=== PATIENT | male | born 1940 | race Caucasian/White ===

== ENCOUNTER 2019-03-04 19:29 | Emergency (ER) | payer MEDICARE ==
[~2019-03-04] VITALS: Ht 177.8 cm; Wt 81.6 kg
--- NOTE | 2019-03-04 19:29 | NUR ---
Placed in room 06 . Placed on monitor tech, blood pressure machine and pulse oximeter. To gown for exam. Side rails up.
--- NOTE | 2019-03-04 19:32 | NUR ---
ER Dr. Renner at bedside examining patient.
--- NOTE | 2019-03-04 19:32 | NUR ---
Pt AAOx4 presents to ED via wheelchair from home c/o slurred speech, 2/10 non-radiating chest pain since 1200 today. Pt reports he also had a mechanical trip and fall at ~ 1300 today, denies KO/n/v/d. Skin dry and warm, breathing even and unlabored. Pt denies taking medication for symptoms. No other injuries/complaints per pt/noted. Son at bedside. Will continue to monitor.
[2019-03-04 19:34] VITALS: BP_SYST 177
--- NOTE | 2019-03-04 19:40 | NUR ---
Pt taken to radiology via gurney in stable condition
[2019-03-04 19:55] LABS: BASOPHILS # (AUTO) 0.1 K/uL (0.0-0.2); BASOPHILS % (AUTO) 1.3 % (0.0-2.0); EOSINOPHILS # (AUTO) 0.7 K/uL (0.0-0.4); EOSINOPHILS % (AUTO) 8.6 % (0.0-4.0); HEMOGLOBIN 14.8 g/dL (14.0-18.0); LYMPHOCYTES # (AUTO) 2.8 K/uL (1.0-5.5); LYMPHOCYTES % (AUTO) 32.6 % (20.5-51.5); MEAN CORPUSCULAR HEMOGLOBIN 29 pg (27-31); MEAN CORPUSCULAR HGB CONC 34 % (32-36); MEAN CORPUSCULAR VOLUME 88 fL (79.0-98.0); MONOCYTES # (AUTO) 0.7 K/uL (0.0-1.0); MONOCYTES % (AUTO) 8.5 % (1.7-9.3); NEUTROPHILS # (AUTO) 4.2 K/uL (1.8-7.7); PLATELET COUNT (AUTO) 237 K/uL (130-430); RED BLOOD CELL COUNT(AUTO) 5.03 MIL/uL (4.2-6.2); RED CELL DISTRIBUTION WIDTH 15.7 % (9.0-15.0); WHITE BLOOD COUNT (AUTO) 8.6 K/uL (4.8-10.8)
--- NOTE | 2019-03-04 19:58 | NUR ---
Pt returned from radiology in stable condition
[2019-03-04 20:06] LABS: ANION GAP 6 (5-15); CALCIUM 9.7 mg/dL (8.4-11.0); CHLORIDE 99 mmol/L (98-107); CREATININE 1.04 mg/dL (0.55-1.30); GLUCOSE 103 mg/dL (70-99); POTASSIUM 4.1 mmol/L (3.5-5.1); SODIUM SERUM 134 mmol/L (136-145); UREA NITROGEN, BLOOD 20 mg/dL (8-21)
[2019-03-04 20:14] LABS: ALANINE AMINOTRANSFERASE 27 U/L (12-78); ALBUMIN 3.5 g/dL (3.4-4.8); ASPARTATE AMINOTRANSFERASE 22 U/L (10-37); TOTAL BILIRUBIN 0.7 mg/dL (0.0-1.0)
--- NOTE | 2019-03-04 20:38 | NUR ---
Pt able to swallow water. Dr. Renner notified.
[2019-03-04] MEDS ORDERED: HALOPERIDOL LACTATE 5 MG/ML VIAL IM ONE (20:45)
[2019-03-04 21:04] LABS: BILIRUBIN,URINE NEGATIVE (NEGATIVE); BLOOD, URINE NEGATIVE (NEGATIVE); CLARITY/URINE CLEAR (CLEAR); COLOR,URINE YELLOW (YELLOW); GLUCOSE,URINE NEGATIVE (NEGATIVE); KETONES,URINE NEGATIVE (NEGATIVE); LEUKOCYTE ESTERASE ,URINE NEGATIVE (NEGATIVE); NITRITE, URINE NEGATIVE (NEGATIVE); PROTEIN URINE 2+ (NEGATIVE); UROBILINOGEN,URINE 0.2 (0.2-1.0)
[2019-03-04 21:25] LABS: BACTERIA,URINE FEW /HPF (None Seen); RBC,URINE 0-3 /HPF (0-3); WBC,URINE 0-3 /HPF (0-3)
--- NOTE | 2019-03-04 21:32 | NUR ---
Pt resting comfortably in bed with no signs of distress
--- NOTE | 2019-03-04 22:40 | NUR ---
Pt taken to radiology for CTA chest.
[2019-03-04] MEDS ORDERED: IOHEXOL 350 mgI/mL, 150 ML INFUS..BTL IV ONE (22:41)
--- NOTE | 2019-03-04 23:38 | NUR ---
Pt is resting in bed, no acute distress noted at this time
--- NOTE | 2019-03-05 00:20 | NUR ---
Janet from [facility] and gave information on transfer. Dr. Davey Woody is the accepting physician. Patient to be transferred to [facility]. Report to be given . [facility] will be picking up patient. ETA is [phone].
--- NOTE | 2019-03-05 00:25 | NUR ---
Pt is resting in bed, no acute distress noted a this time. Will continue to monitor.
[2019-03-05] MEDS ORDERED: ASPIRIN 325 MG TABLET PO ONE (00:30)
--- NOTE | 2019-03-05 00:50 | NUR ---
Patient to be transferred to insurance reasons. Is being transferred due to higher level of care. Receiving facility has accepting physician and available space. ER physician has signed transfer form. Patient or responsible democrat has agreed to transfer and signed form. Patient belongings inventoried and will be sent with patient. Copy of nursing notes, lab reports, EKG, Physicians Orders and X-rays to be sent with patient. Report called to kIer PFEIFFER at receiving facility. Receiving physician is Dr. Hans Woody. [facility] has been called for transfer. ETA is [phone].
[2019-03-05 01:05] VITALS: BP_SYST 150
== END 2019-03-05 00:50 | disposition short-term general hospital (02) ==
LOC: SED 19:29
DX: I63.9 Cerebral infarction, unspecified (principal); I10 Essential (primary) hypertension; Z88.2 Allergy status to sulfonamides
CPT/HCPCS: 36415; 70450; 71275; 71045; 80053; 81000; 82550; 84484; 85025; 85379; 93005; 99285; Q9967